=== PATIENT | male | born 1985 | race Hispanic/Latino ===

== ENCOUNTER 2020-10-12 15:33 | Inpatient (IN) | payer SELFPAY ==
[2020-10-12] MEDS ORDERED: NA CHLORIDE 0.9% 50 ML ONE (17:13)
[2020-10-12] MEDS ORDERED: CLINDAMYCIN IV 150 MG/ML (4 mL) VIAL ONE (17:13)
[2020-10-12 17:39] LABS: BUN Blood Urea Nitrogen 7 mg/dL (7-18); Bicarbonate 31 mmol/L (21-32); Glucose Level 104 mg/dL (74-106); Potassium 3.5 mmol/L (3.5-5.1); Sodium Level 140 mmol/L (136-145)
[2020-10-12 17:44] LABS: Basophils % 0.2 % (0-1.3); Hematocrit 40.6 % (39.6-49.0); Lymphocytes % 6.6 % (15.3-44.8); MPV 9.4 fL (7.6-11.3); RBC Red Blood Cell Count 4.41 M/uL (4.33-5.43)
--- NOTE | 2020-10-12 17:48 | EDPHYS ---
Physician Documentation [facility] Name: Daija Holder Age: 35 yrs Sex: Male : 1985 Arrival Date: 10/12/2020 Time: 15:35 Bed 23 Private MD: ED Physician Thee Barrett HPI: 10/12 17:42 This 35 yrs old Male presents to ER via Ambulatory with complaints of Abscess, kb Facial Swelling. 17:47 The patient presents with an abscess of the upper lip, The patient presents with kb cellulitis of the upper lip and left cheek. Description: draining, erythematous, fluctuant, hot, streaking, swollen, tense. Onset: The symptoms/episode began/occurred 3 day(s) ago. Possible cause(s): unknown. Associated signs and symptoms: Pertinent positives: drainage, erythema, swelling, Pertinent negatives: foreign body sensation, fever, headache, nausea, shortness of breath, vomiting. Modifying factors: the symptoms are alleviated by nothing, the symptoms are aggravated by pressure, squeezing the lesion and expressing the contents, touching. Severity of symptoms: At their worst the symptoms were moderate, in the emergency department the symptoms are unchanged. The patient has not experienced similar symptoms in the past. The patient has not recently seen a physician. 17:48 Pt states he had a pimple on left side of upper lip that he was squeezing to get stuff kb out of. Today he woke up with swelling and redness that spread up to the eye. . Historical: - Allergies: 15:48 No Known Allergies; hb - Home Meds: 15:48 None [Active]; hb - PMHx: 15:48 None; hb - PSHx: 15:48 None; hb - Immunization history:: Adult Immunizations up to date. - Social history:: Smoking status: Patient denies any tobacco usage or history of. ROS: 17:38 Constitutional: Negative for fever, chills, and weight loss, Cardiovascular: Negative kb for chest pain, palpitations, and edema, Respiratory: Negative for shortness of breath, cough, wheezing, and pleuritic chest pain, Abdomen/GI: Negative for abdominal pain, nausea, vomiting, diarrhea, and constipation, Back: Negative for injury and pain, MS/Extremity: Negative for injury and deformity, Neuro: Negative for headache, weakness, numbness, tingling, and seizure. 17:38 Skin: Positive for abscess, of the left cheek and upper lip. Exam: 17:38 Constitutional: This is a well developed, well nourished patient who is awake, alert, kb and in no acute distress. Head/Face: Normocephalic, atraumatic. Chest/axilla: Normal chest wall appearance and motion. Nontender with no deformity. No lesions are appreciated. Cardiovascular: Regular rate and rhythm with a normal S1 and S2. No gallops, murmurs, or rubs. Normal PMI, no JVD. No pulse deficits. Respiratory: Lungs have equal breath sounds bilaterally, clear to auscultation and percussion. No rales, rhonchi or wheezes noted. No increased work of breathing, no retractions or nasal flaring. Abdomen/GI: Soft, non-tender, with normal bowel sounds. No distension or tympany. No guarding or rebound. No evidence of tenderness throughout. MS/ Extremity: Pulses equal, no cyanosis. Neurovascular intact. Full, normal range of motion. Neuro: Awake and alert, GCS 15, oriented to person, place, time, and situation. Cranial nerves II-XII grossly intact. Motor strength 5/5 in all extremities. Sensory grossly intact. Cerebellar exam normal. Normal gait. 17:38 Skin: abscess, that is moderate sized, of the upper lip and left cheek, with drainage, with fluctuance, with induration. Vital Signs: 15:47 BP 125 / 74; Pulse 98; Resp 16; Temp 98.7; Pulse Ox 100% on R/A; Pain 3/10; hb 16:41 BP 124 / 72; Pulse 91; Resp 18; Temp 99.6(O); Pulse Ox 99% on R/A; Weight 77.11 kg; zb Height 5 ft. 5 in. (165.10 cm); 17:54 BP 122 / 90; Pulse 91; Resp 18; Pulse Ox 99% on R/A; ph 19:24 BP 139 / 88; Pulse 98; Resp 16; Pulse Ox 100% on R/A; jb4 22:54 BP 100 / 60; Pulse 98; Resp 18; Pulse Ox 98% on R/A; wh 16:41 Body Mass Index 28.29 (77.11 kg, 165.10 cm) zb MDM: 16:27 Patient medically screened. 17:00 Data reviewed: vital signs, nurses notes. Data interpreted: Pulse oximetry: on room air kb is 99 %. Interpretation: normal. Counseling: I had a detailed discussion with the patient and/or guardian regarding: the historical points, exam findings, and any diagnostic results supporting the discharge/admit diagnosis, lab results, the need for further work-up and treatment in the hospital. 17:30 Physician consultation: Physician consultation: Ramiro Perera MD was contacted at 17:30, regarding consult, patient's condition, does not do head and neck abscesses, recommended ENT consult. 17:37 Physician consultation: Marquez Ocasio MD was contacted at 17:37, regarding consult, patient's condition, and will see patient in inpatient room, Orders NPO after midnight, will do I\T\D tomorrow. 17:46 Physician consultation: Jose Manuel Rodríguez DO was contacted at 17:47, regarding admission, kb to the medical/surgical unit. patient's condition. 10/12 16:42 Order name: CBC with Diff; Complete Time: 17:49 kb 10/12 16:42 Order name: Basic Metabolic Panel; Complete Time: 17:49 kb 10/12 16:42 Order name: Wound Culture 10/12 20:35 Order name: COVID-19 bb 10/12 22:32 Order name: [facility] 10/12 23:48 Order name: SARS-COV-2 RT PCR [facility] 10/12 16:42 Order name: IV Start; Complete Time: 17:53 kb 10/13 05:16 Order name: CBC with Automated Diff [facility] 10/13 05:43 Order name: Basic Metabolic Panel [facility] 10/13 07:57 Order name: Hemoglobin A1c [facility] Administered Medications: 16:59 Drug: Clindamycin 300 mg Route: IVPB; Infused Over: 30 mins; Site: right antecubital; ph 17:53 Follow up: Response: No adverse reaction; IV Status: Completed infusion; IV Intake: 50mlph 17:46 Drug: Zofran (Ondansetron) 4 mg Route: IVP; Site: right antecubital; ph 17:53 Follow up: Response: No adverse reaction ph 17:47 Drug: morphine 2 mg Route: IVP; Site: right antecubital; ph 18:00 Follow up: Response: No adverse reaction; Pain is decreased zb 20:13 Drug: morphine 2 mg Route: IVP; Site: right antecubital; jb4 22:54 Follow up: Response: No adverse reaction; Pain is decreased; RASS: Alert and Calm (0) Disposition: 10/12/20 17:47 Hospitalization ordered by Jose Manuel Rodríguez for Observation. Preliminary diagnosis is Cutaneous abscess of face. - Bed requested for [facility] ER HOLD. - Status is Observation. eb - Condition is Stable. - Problem is new. - Symptoms are unchanged. Addendum: 10/14/2020 08:23 Co-signature as Attending Physician, Thee Barrett MD I agree with the assessment and k dr plan of care. Signatures: Dispatcher [employer] EDMS Nancy Gomez, GEOLOGY SCIENTIST-C GEOLOGY SCIENTIST-Ckb Thee Barrett MD MD [facility] Sari Parkinson RN RN Emmy Ruiz RN RN Norah Gallegos RN RN Riccardo Wharton RN RN jbTricia Haddad Winsy July Brizuela RN zb Corrections: (The following items were deleted from the chart) 10/12 17:37 17:33 Physician consultation: goldy 22:13 17:47 Hospitalization Ordered by Jose Manuel Rodríguez DO for Observation. Preliminary cg diagnosis is Cutaneous abscess of face. Bed requested for Telemetry/MedSurg (observation). Status is Observation. Condition is Stable. Problem is new. Symptoms are unchanged. 10/13 08:06 10/12 22:13 10/12/2020 17:47 Hospitalization Ordered by Jose Manuel Rodríguez DO for eb Observation. Preliminary diagnosis is Cutaneous abscess of face. Bed requested for [facility] ER HOLD. Status is Observation. Condition is Stable. Problem is new. Symptoms are unchanged. cg
--- NOTE | 2020-10-12 17:48 | ER ---
Nurse's Notes [facility] Name: Daija Holder Age: 35 yrs Sex: Male : 1985 Arrival Date: 10/12/2020 Time: 15:35 Bed 23 Private MD: Diagnosis: Cutaneous abscess of face Presentation: 10/12 15:47 Chief complaint: Abscess on upper lip and left sided facial swelling x 3 days. hb Coronavirus screen: At this time, the client does not indicate any symptoms associated with coronavirus-19. Ebola Screen: No symptoms or risks identified at this time. Onset of symptoms was October 09, 2020. 15:47 Method Of Arrival: Ambulatory hb 15:47 Acuity: NIRMAL 3 hb 16:40 Initial Sepsis Screen: Does the patient meet any 2 criteria? No. Patient's initial zb sepsis screen is negative. Does the patient have a suspected source of infection? No. Patient's initial sepsis screen is negative. Risk Assessment: Do you want to hurt yourself or someone else? Patient reports no desire to harm self or others. Triage Assessment: 17:52 General: See initial assessment . ph Historical: - Allergies: 15:48 No Known Allergies; hb - Home Meds: 15:48 None [Active]; hb - PMHx: 15:48 None; hb - PSHx: 15:48 None; hb - Immunization history:: Adult Immunizations up to date. - Social history:: Smoking status: Patient denies any tobacco usage or history of. Screenin:40 Abuse screen: Denies threats or abuse. Denies injuries from another. Nutritional zb screening: No deficits noted. Tuberculosis screening: No symptoms or risk factors identified. Fall Risk None identified. Assessment: 16:37 General: Appears in no apparent distress. comfortable, Behavior is calm, cooperative, zb appropriate for age. Pain: Complains of pain in left cheek, mouth and nose Is continuous, Aggravated by pressure. Neuro: Level of Consciousness is awake, alert, obeys commands, Oriented to person, place, time, situation. Cardiovascular: Capillary refill < 3 seconds in bilateral fingers. Respiratory: Airway is patent Respiratory effort is even, unlabored. GI: No signs and/or symptoms were reported involving the gastrointestinal system. : No signs and/or symptoms were reported regarding the genitourinary system. EENT: No signs and/or symptoms were reported regarding the EENT system. Derm: Abscess located on mouth. Musculoskeletal: Circulation, motion, and sensation intact. 19:10 Reassessment: Patient appears in no apparent distress at this time. Patient and/or jb4 family updated on plan of care and expected duration. Pain level reassessed. Patient is alert, oriented x 3, equal unlabored respirations, skin warm/dry/pink. Vital Signs: 15:47 BP 125 / 74; Pulse 98; Resp 16; Temp 98.7; Pulse Ox 100% on R/A; Pain 3/10; hb 16:41 BP 124 / 72; Pulse 91; Resp 18; Temp 99.6(O); Pulse Ox 99% on R/A; Weight 77.11 kg; zb Height 5 ft. 5 in. (165.10 cm); 17:54 BP 122 / 90; Pulse 91; Resp 18; Pulse Ox 99% on R/A; ph 19:24 BP 139 / 88; Pulse 98; Resp 16; Pulse Ox 100% on R/A; jb4 22:54 BP 100 / 60; Pulse 98; Resp 18; Pulse Ox 98% on R/A; wh 16:41 Body Mass Index 28.29 (77.11 kg, 165.10 cm) zb ED Course: 15:35 Patient arrived in ED. ds1 15:48 Triage completed. hb 15:49 Arm band placed on. hb 16:27 Nancy Gomez FNP-C [facility]. kb 16:27 Thee Barrett MD is Attending Physician. kb 16:30 July Brizuela RN is Primary Nurse. zb 16:41 Patient has correct armband on for positive identification. Bed in low position. Call zb light in reach. Side rails up X 1. Pulse ox on. NIBP on. Door closed. Noise minimized. 17:00 Inserted saline lock: 22 gauge in right antecubital area, using aseptic technique. zb 17:47 Jose Manuel Rodríguez DO is Hospitalizing Provider. kb 18:12 No provider procedures requiring assistance completed. zb 22:54 Patient admitted, IV remains in place. wh Administered Medications: 16:59 Drug: Clindamycin 300 mg Route: IVPB; Infused Over: 30 mins; Site: right antecubital; ph 17:53 Follow up: Response: No adverse reaction; IV Status: Completed infusion; IV Intake: 50mlph 17:46 Drug: Zofran (Ondansetron) 4 mg Route: IVP; Site: right antecubital; ph 17:53 Follow up: Response: No adverse reaction ph 17:47 Drug: morphine 2 mg Route: IVP; Site: right antecubital; ph 18:00 Follow up: Response: No adverse reaction; Pain is decreased zb 20:13 Drug: morphine 2 mg Route: IVP; Site: right antecubital; jb4 22:54 Follow up: Response: No adverse reaction; Pain is decreased; RASS: Alert and Calm (0) wh Intake: 17:53 IV: 50ml; Total: 50ml. ph Outcome: 17:47 Decision to Hospitalize by Provider. kb 22:53 Admitted to ER Hold. Please see [facility] for further documentation. 22:53 Condition: stable 22:53 Instructed on the need for admit. 10/13 08:06 Patient left the ED. eb Signatures: Nancy Gomez, STRATEGY EXECUTION CONSULTANT-C STRATEGY EXECUTION CONSULTANT-Stephanie Tarango ds1 Sari Parkinson RN RN Norah Gallegos RN RN hb Bryson, James, RN RN jb4 Habalo, Winsy Tricia Curtis [place], RN RN zb
[2020-10-12] MEDS ORDERED: MORPHINE 2 MG/ML SYR ONE ×2 (17:49→20:22)
[2020-10-12] MEDS ORDERED: ONDANSETRON 4 MG/2 ML VIAL ONE (17:50)
--- NOTE | 2020-10-12 19:04 | P.HP ---
Certification for Inpatient Patient admitted to: Inpatient With expected LOS: >2 Midnights Patient will require the following post-hospital care: None Practitioner: I am a practitioner with admitting privileges, knowledge of patient current condition, hospital course, and medical plan of care. Services: Services provided to patient in accordance with Admission requirements found in Title 42 Section 412.3 of the Code of Federal Regulations <LoraAkbar Last Filed: 10/12/20 18:58> Patient admitted to: Inpatient With expected LOS: >2 Midnights <Jose Manuel Rodríguez - Last Filed: 10/13/20 15:15> Patient History Date of Service: 10/12/20 Primary Care Provider: None Reason for admission: Facial abscess History of Present Illness: 35 year old male with no significant past medical history presents emergency department for left-sided facial redness and swelling. Patient reports that approximately 3 days ago he nicked himself while shaving and has noticed an area above his lip that has began swelling. Swelling has increased, left-side with very swollen with redness extending to just below the left eye. No redness or pain involving the eye or periorbital areas. Patient noted to 15 white blood cell count. ED provider spoke with plastic surgery who will take patient to operating room tomorrow. Patient does not appear septic at this time. - Past Medical/Surgical History -: None -: None Psychosocial/ Personal History: Lives with family - Family History Family History: Reviewed- Non-Contributory - Social History Smoking Status: Never smoker Alcohol use: Yes CD- Drugs: No Caffeine use: No Place of Residence: Home <Akbar Paulino - Last Filed: 10/12/20 18:58> Date of Service: 10/13/20 Home medications list reviewed: Yes - Past Medical/Surgical History Diabetic: No <Jose Manuel Rodríguez - Last Filed: 10/13/20 15:15> Review of Systems 10-point ROS is otherwise unremarkable Musculoskeletal: As per HPI Integumentary: As per HPI <Akbar Paulino Last Filed: 10/12/20 18:58> Physical Examination - Physical Exam General: Alert, In no apparent distress HEENT: Atraumatic, PERRLA, Mucous membr. moist/pink, Other (Redness swelling to left facial area including with with redness extending to just below the left eye.) Neck: Supple, 2+ carotid pulse no bruit, No LAD, Without JVD or thyroid abnormality Respiratory: Clear to auscultation bilaterally, Normal air movement Cardiovascular: Regular rate/rhythm, Normal S1 S2 Gastrointestinal: Normal bowel sounds, No tenderness Musculoskeletal: No tenderness Integumentary: No rashes Neurological: Normal gait, Normal speech, Normal strength at 5/5 x4 extr, Normal tone, Normal affect - Studies Laboratory Data (last 24 hrs) 10/12/20 17:10: Sodium 140, Potassium 3.5, BUN 7, Creatinine 0.93, Glucose 104 10/12/20 17:10: WBC 15.6 H, Hgb 13.8, Hct 40.6, Plt Count 218 <Akbar Paulino - Last Filed: 10/12/20 18:58> - Studies Laboratory Data (last 24 hrs) 10/12/20 17:10: Sodium 140, Potassium 3.5, BUN 7, Creatinine 0.93, Glucose 104 10/12/20 17:10: WBC 15.6 H, Hgb 13.8, Hct 40.6, Plt Count 218 Microbiology Data (last 24 hrs): 10/12/20 17:14 Wound - Abscess Gram Stain - Final <Jose Manuel Rodríguez - Last Filed: 10/13/20 15:15> Assessment and Plan - Plan Assessment Left-sided facial abscess Plan Left-sided facial abscess-continue with IV antibiotics, NPO after midnight. Plan for surgical intervention tomorrow plastic surgery. DVT prophylaxis with SCDs. P.r.n. pain medications. Discharge Plan: Home Plan to discharge in: 48 Hours - Advance Directives Does patient have a Living Will: No Does patient have a Durable POA for Healthcare: No - Code Status/Comfort Care Code Status Assessed: Yes (Full code) Critical Care: No Time Spent Managing Pts Care (In Minutes): 55 <Akbar Paulino - Last Filed: 10/12/20 18:58> - Plan Case discussed in detail with nurse practitioner. Agree with evaluation, assessment and plan of care. Continue IV antibiotic therapy. Patient NPO for intervention by plastic surgery. Await recommendation. Will consult infectious disease for further recommendation on antibiotic choice. Please see progress note for details. <Jose Manuel Rodríguez - Last Filed: 10/13/20 15:15>
[2020-10-12] MEDS ORDERED: MORPHINE 2 MG/ML SYR IV PRN (19:28)
[2020-10-12] MEDS ORDERED: ACETAMINOPHEN 500 MG TAB PO PRN (19:28)
[2020-10-12] MEDS: NA CHLORIDE 0.9% 1,000 ML IV SCH (19:28)
[2020-10-12] MEDS ORDERED: ONDANSETRON 4 MG/2 ML VIAL IV PRN (19:28)
[2020-10-12] MEDS ORDERED: NA CHLORIDE 0.9% 1,000 ML ONE (20:12)
[2020-10-12 21:18] VITALS: BMI 28.3
[2020-10-13] MEDS: CLINDAMYCIN INJ 600 MG in NA CHLORIDE 0.9% 50 ML IV SCH ×3 (01:00→16:48)
[2020-10-13] MEDS ORDERED: CLINDAMYCIN 600MG/D5W 600 MG/50 ML BAG IV ONE (02:21)
[2020-10-13] MEDS ORDERED: MORPHINE 2 MG/ML SYR ONE ×2 (02:21→07:37)
[2020-10-13] MEDS ORDERED: NA CHLORIDE 0.9% 1,000 ML ONE (04:53)
[2020-10-13] MEDS: NA CHLORIDE 0.9% 1,000 ML IV SCH ×5 (04:58→16:23)
[2020-10-13 05:09] LABS: Absolute Lymphocytes (CBC) 1.2 K/uL (0.7-4.9); Basophils % 0.2 % (0-1.3); Hematocrit 37.6 % (39.6-49.0); Lymphocytes % 7.5 % (15.3-44.8); MPV 9.3 fL (7.6-11.3); RBC Red Blood Cell Count 4.05 M/uL (4.33-5.43)
[2020-10-13 05:42] LABS: BUN Blood Urea Nitrogen 7 mg/dL (7-18); Bicarbonate 29 mmol/L (21-32); Glucose Level 126 mg/dL (74-106); Potassium 3.6 mmol/L (3.5-5.1); Sodium Level 141 mmol/L (136-145)
[2020-10-13] MEDS ORDERED: KCL 20 MEQ/100 mL IVPB 20 MEQ/100 ML BAG IV ONE (07:38)
[2020-10-13] MEDS ORDERED: KCL 20 MEQ/100 mL IVPB 20 MEQ/100 ML BAG IV SCH (08:00)
[2020-10-13] MEDS ORDERED: LIDOCAINE 1% MPF 5 ML VIAL ONE (08:24)
[2020-10-13] MEDS ORDERED: propofoL 200 MG/20 ML VIAL IV ONE (08:24)
[2020-10-13] MEDS ORDERED: MIDAZOLAM HCL 2 MG/2 ML INJ ONE (08:24)
[2020-10-13] MEDS ORDERED: FENTANYL CITR 100 MCG/2 ML ONE (08:24)
--- NOTE | 2020-10-13 08:29 | P.PN ---
Subjective Date of Service: 10/13/20 Primary Care Provider: None Chief Complaint: Facial abscess Subjective: Other (Swelling to the left upper lip area and facial area slightly improved. Pain better controlled) Physical Examination - Vital Signs Temperature: 98.9 F Blood Pressure: 126/81 Pulse: 116 Respirations: 20 Pulse Ox (%): 95 - Physical Exam General: Alert, In no apparent distress HEENT: Other (Patient has significant erythema, swelling to the upper lip left greater than right. Patient also has erythema and swelling radiating to the left maxilla orbital area.) Neck: Supple Respiratory: Clear to auscultation bilaterally, Normal air movement Cardiovascular: Normal pulses, Regular rate/rhythm Gastrointestinal: Normal bowel sounds, Soft and benign, Non-distended, No tenderness, No masses, No rebound, No guarding Neurological: Normal speech, Normal strength at 5/5 x4 extr, Normal tone, Normal affect - Studies Laboratory Data (last 24 hrs) 10/12/20 17:10: Sodium 140, Potassium 3.5, BUN 7, Creatinine 0.93, Glucose 104 10/12/20 17:10: WBC 15.6 H, Hgb 13.8, Hct 40.6, Plt Count 218 Medications List Reviewed: Yes Assessment & Plan Discharge Plan: Home Plan to discharge in: 48 Hours Physician Review Additional Text: Assessment Left-sided upper lip/maxillofacial cellulitis with possible abscess likely related to ingrown hair Plan Left-sided upper lip/maxillofacial cellulitis with possible abscess likely related to ingrown hair: Patient currently NPO at this time. Plastic surgery was consulted yesterday. Surgical intervention planned for today. Anticipate irrigation and debridement of abscess. Continue with IV antibiotic therapy. Increase IV fluids. Will provide medication for pain. Will also consult infectious disease for further antibiotic recommendation. Blood sugar slightly elevated but A1c at 5.3. No evidence of pre diabetes or diabetes. Anticipate improvement over the next 48 hr. Time Spent Managing Pts Care (In Minutes): 55
[2020-10-13] MEDS ORDERED: SUCCINYLCHOLINE 20 MG/ML (10 ML) IV ONE (08:46)
[2020-10-13] MEDS ORDERED: ROCURONIUM 50 MG/5 ML VIAL IV ONE (08:56)
[2020-10-13] MEDS ORDERED: KETOROLAC 30 MG/ML INJ ONE (09:14)
[2020-10-13] MEDS ORDERED: MORPHINE 10 MG/ML VIAL ONE (09:17)
[2020-10-13] MEDS ORDERED: ONDANSETRON 4 MG/2 ML VIAL ONE (09:17)
[2020-10-13] MEDS ORDERED: INFLUENZA VACCINE (for 3y+) 0.5 ML DOSE IMVAC ONE (10:00)
--- NOTE | 2020-10-13 10:05 | OP ---
Surgeon: Marquez Ocasio MD Preoperative Diagnosis: Abscess of left face. Preoperative Diagnosis: Abscess of left face. Procedure Performed: Debridement of skin and subcutaneous tissue and abscess. Anesthesia: General. Procedure In Detail: After satisfactory induction of general anesthesia, the face was prepped with Betadine scrub, Betadine paint, dry sterile drapes were applied in usual manner. Elliptical incision was made over the open wound on the left upper lip area. Cultures had been taken prior to preping. the abscess was observed extending toward the eye. Elliptical incision was made over the lip was tracked with a hemostat. A [place] drain was placed and wound was jet lavaged, irrigated with 3 L of dilute Betadine solution. Electrocautery was used for hemostasis. Wound was covered with 4 x 4 tape. The patient tolerated procedure well, returned to Recovery. VISHNU Voice ID: [id number] Report ID: [id number] EDSON
[2020-10-13] MEDS ORDERED: MEPERIDINE HCL 50 MG/ML IM PRN (10:10)
[2020-10-13] MEDS ORDERED: CODEINE 30MG/APAP 300MG TAB PO PRN (10:11)
[2020-10-13] MEDS: HYDROCODONE/APAP 7.5/325 MG TAB PO PRN ×2 (10:35→16:53)
[2020-10-13] MEDS: DIPHENHYDRAMINE 50 MG/ML VIAL IV PRN (20:48)
[2020-10-14] MEDS: CLINDAMYCIN INJ 600 MG in NA CHLORIDE 0.9% 50 ML IV SCH ×2 (01:11→08:37)
[2020-10-14] MEDS: NA CHLORIDE 0.9% 1,000 ML IV SCH ×3 (01:12→16:23)
[2020-10-14 05:52] LABS: Absolute Lymphocytes (CBC) 1.4 K/uL (0.7-4.9); Basophils % 0.4 % (0-1.3); Hematocrit 35.1 % (39.6-49.0); Lymphocytes % 16.7 % (15.3-44.8); MPV 9.1 fL (7.6-11.3); RBC Red Blood Cell Count 3.81 M/uL (4.33-5.43)
[2020-10-14 06:02] LABS: BUN Blood Urea Nitrogen 10 mg/dL (7-18); Bicarbonate 30 mmol/L (21-32); Glucose Level 100 mg/dL (74-106); Sodium Level 140 mmol/L (136-145)
--- NOTE | 2020-10-14 09:53 | P.PN ---
Subjective Date of Service: 10/14/20 Primary Care Provider: None Chief Complaint: Facial abscess Subjective: Improving, Other (Patient had surgery yesterday. No significant pain noted. Patient feels better..) Physical Examination - Vital Signs Temperature: 97.5 F Blood Pressure: 110/74 Pulse: 85 Respirations: 20 Pulse Ox (%): 96 - Physical Exam General: Alert, Cooperative HEENT: Other (Erythema to the left facial area and lip improved. Drain in place. Erythema also improved) Neck: Supple Respiratory: Clear to auscultation bilaterally, Normal air movement Cardiovascular: Normal pulses, Regular rate/rhythm Gastrointestinal: Normal bowel sounds, Soft and benign, Non-distended Integumentary: Other (As above) Neurological: Normal speech, Normal strength at 5/5 x4 extr, Normal tone, Normal affect - Studies Microbiology Data (last 24 hrs): 10/12/20 17:14 Wound - Abscess Gram Stain - Final 10/12/20 17:14 Wound - Abscess Culture & Sensitivity - Final Meth Resistant Staph Aureus Staph Aureus Medications List Reviewed: Yes Assessment & Plan Discharge Plan: Home Plan to discharge in: 24 Hours Physician Review Additional Text: Assessment Left-sided upper lip/maxillofacial cellulitis with abscess likely related to ingrown hair status post debridement by plastic surgery, wound culture positive for Staph aureus and MRSA Plan Left-sided upper lip/maxillofacial cellulitis with abscess likely related to ingrown hair status post debridement by plastic surgery, wound culture positive for Staph aureus and MRSA: Patient overall improved. Swelling, erythema improved. White count also improved. Wound culture reviewed. Discontinue clindamycin. Start vancomycin. Will discuss case with Infectious Disease and Plastic surgery. Possible discharge in the next 24 hr with improvement. Possible discharge with Bactrim and doxycycline at discharge. Will continue to monitor closely. Time Spent Managing Pts Care (In Minutes): 55
[2020-10-14 10:23] VITALS: O2SAT 96
[2020-10-14] MEDS: VANCOMYCIN 1.5 GM in NA CHLORIDE 0.9% 500 ML IVPB SCH ×2 (12:03→20:55)
[2020-10-14] MEDS: HYDROCODONE/APAP 7.5/325 MG TAB PO PRN ×2 (12:10→20:57)
[2020-10-14] MEDS: TRAMADOL HCL 50 MG TAB PO PRN (15:35)
[2020-10-15] MEDS: NA CHLORIDE 0.9% 1,000 ML IV SCH ×2 (00:23→03:48)
[2020-10-15] MEDS: TRAMADOL HCL 50 MG TAB PO PRN (04:34)
[2020-10-15] MEDS: DIPHENHYDRAMINE 50 MG/ML VIAL IV PRN (04:37)
[2020-10-15 05:17] LABS: Absolute Lymphocytes (CBC) 1.3 K/uL (0.7-4.9); Basophils % 0.4 % (0-1.3); Hematocrit 34.8 % (39.6-49.0); Lymphocytes % 20.3 % (15.3-44.8); MPV 8.8 fL (7.6-11.3); RBC Red Blood Cell Count 3.81 M/uL (4.33-5.43)
[2020-10-15] MEDS ORDERED: IBUPROFEN 400 MG TAB PO PRN (07:19)
[2020-10-15] MEDS ORDERED: LACTOBACILLUS/ACIDOPHILUS TAB PO SCH (09:00)
[2020-10-15] MEDS: VANCOMYCIN 1.5 GM in NA CHLORIDE 0.9% 500 ML IVPB SCH (09:15)
--- NOTE | 2020-10-15 09:33 | P.DS ---
Admission Date: 10/12/20 Discharge Date: 10/15/20 Primary Care Provider: None Disposition: ROUTINE DISCHARGE Discharge Condition: GOOD Reason for Admission: Facial abscess Consultations: Infectious disease-Dr. Peters Plastic Surgery-Dr. Ocasio Procedures: Surgery: Surgeon: Marquez Ocasio MD Preoperative Diagnosis: Abscess of left face. Preoperative Diagnosis: Abscess of left face. Procedure Performed: Debridement of skin and subcutaneous tissue and abscess. Anesthesia: General. Medical problem list: Left-sided upper lip/maxillofacial cellulitis with abscess likely related to ingrown hair status post debridement by plastic surgery, wound culture positive for Staph aureus and MRSA Brief History of Present Illness: 35-year-old male presented to the emergency room with increased swelling to the left facial area including the lid. He apparently had a small cut from shaving. Since that time increased pain, swelling and erythema noted. Patient was evaluated emergency room. Patient found to have left facial cellulitis with abscess. Patient admitted for treatment. Hospital Course: Patient presented with left-sided upper lip/maxillofacial cellulitis with abscess. Patient was seen and evaluated by plastic surgery. Surgical intervention was required. Patient had debridement with drain placed by plastic surgery. Wound culture positive for Staph aureus and MRSA. The patient received IV antibiotic therapy. Patient has done well. Patient also seen by infectious disease. At discharge he is without significant pain. Swelling has significantly improved. Case discussed in detail with plastic surgery and infectious disease. At discharge patient will continue with current wound care. Instructions will be provided to teach . At discharge patient will continue with Bactrim DS 1 pill twice daily for 10 days. Patient may use ibuprofen 600 mg 3 times a day as needed for pain along with Tylenol 500 mg 3 times a day as needed for pain. Patient will follow up with plastic surgery tomorrow at 9:00 a.m. to follow up this hospitalization and continue his care. Recommend to establish care with a local physician to continue his care as well. Education on MRSA provided. Vital Signs/Physical Exam: Temp Pulse Resp BP Pulse Ox 97.3 F 69 20 109/58 L 94 10/15/20 08:00 10/15/20 08:00 10/15/20 08:00 10/15/20 08:00 10/15/20 08:00 General: Alert, In no apparent distress, Oriented x3, Cooperative HEENT: Other (Left facial swelling significantly improved. Mild swelling noted to the lip region on the left side. No significant erythema noted. Drain in place. Postsurgical changes noted.) Neck: Supple Respiratory: Clear to auscultation bilaterally, Normal air movement Cardiovascular: Normal pulses, Regular rate/rhythm Gastrointestinal: Normal bowel sounds, Soft and benign, Non-distended, No tenderness, No masses, No rebound, No guarding Musculoskeletal: No erythema, No tenderness, No warmth Integumentary: No tenderness/swelling, No erythema, No warmth, No cyanosis Neurological: Normal speech, Normal strength at 5/5 x4 extr, Normal tone, Normal affect Laboratory Data at Discharge: WBC 6.5 K/uL (4.3-10.9) D 10/15/20 04:44 Hgb 12.2 g/dL (13.6-17.9) L 10/15/20 04:44 Hct 34.8 % (39.6-49.0) L 10/15/20 04:44 Plt Count 236 K/uL (152-406) 10/15/20 04:44 Sodium 140 mmol/L (136-145) 10/14/20 05:13 Potassium 4.0 mmol/L (3.5-5.1) 10/14/20 05:13 BUN 10 mg/dL (7-18) 10/14/20 05:13 Creatinine 0.79 mg/dL (0.55-1.3) 10/14/20 05:13 Glucose 100 mg/dL (74-106) 10/14/20 05:13 Home Medications: Lactobacillus Acidophilus [Acidophilus Lactobacilli] 1 each PO TID #30 capsule 10/15/20 Sulfamethoxazole/Trimethoprim [Bactrim Ds Tablet] 1 each PO BID #20 tablet 10/15/20 New Medications: Lactobacillus Acidophilus [Acidophilus Lactobacilli] 1 each PO TID #30 capsule Sulfamethoxazole/Trimethoprim [Bactrim Ds Tablet] 1 each PO BID #20 tablet Patient Discharge Instructions: 1. Follow up with PCP to establish care. 2. Patient presented with left-sided upper lip/maxillofacial cellulitis with abscess. Patient was seen and evaluated by plastic surgery. Surgical intervention was required. Patient had debridement with drain placed by plastic surgery. Wound culture positive for Staph aureus and MRSA. The patient received IV antibiotic therapy. Patient has done well. Patient also seen by infectious disease. At discharge he is without significant pain. Swelling has significantly improved. Case discussed in detail with plastic surgery and infectious disease. At discharge patient will continue with current wound care. Instructions will be provided to teach . At discharge patient will continue with Bactrim DS 1 pill twice daily for 10 days. Patient may use ibuprofen 600 mg 3 times a day as needed for pain along with Tylenol 500 mg 3 times a day as needed for pain. Patient will follow up with plastic surgery tomorrow at 9:00 a.m. to follow up this hospitalization and continue his care. Recommend to establish care with a local physician to continue his care as well. Education on MRSA provided. Diet: Regular Activity: Ad yolanda Followup: Kulwant BRITOOT [Primary Care Provider] - Time spent managing pt's care (in minutes): 55
[2020-10-15] MEDS ORDERED: VANCOMYCIN 1 GM in NA CHLORIDE 0.9% 500 ML IVPB SCH (09:50)
[2020-10-15 13:39] VITALS: BP 118/71; TEMP 97.8
== END 2020-10-15 13:09 | disposition home or self-care (01) | DRG 580 ==
LOC: ER 15:33 → ERHOLD 18:53 → 2ND 10-13 08:30
PROVIDERS: ADMIT Family Medicine; ATTEND Family Medicine
PROC: 0JD10ZZ Extraction of Face Subcutaneous Tissue and Fascia, Open Approach (ICD-10-PCS; principal; 2020-10-13 08:00)
DX: L03.211 Cellulitis of face (principal); L02.01 Cutaneous abscess of face; L73.1 Pseudofolliculitis barbae; K13.0 Diseases of lips; B95.62 Methicillin resistant Staphylococcus aureus infection as the cause of diseases classified elsewhere; Z20.828 Contact with and (suspected) exposure to other viral communicable diseases
CPT/HCPCS: 36415; 80048; 83036; 85025; 87070; 87075; 87077; 87186; 87205; 88304; 96365; 96375; 99285; J0330; J1200; J2250; J2270; J2405; J2704; J3010; J3370; J3480; J7030; J7040; S0077; U0003

== ENCOUNTER 2020-10-18 10:55 | Day surgery (SDC) | payer SELFPAY ==
[2020-10-18] MEDS ORDERED: Ringers Lactate 1,000 ML IV ONE (12:43)
[2020-10-18] MEDS: CEFAZOLIN/SWI 1gm 1 GM/10 ML SYR ONE ×2 (13:22→14:45)
[2020-10-18] MEDS ORDERED: LIDOCAINE 1% W/EPI 1:100,000 MDV 20 ML VIAL ONE (14:03)
[2020-10-18] MEDS ORDERED: LIDOCAINE 1% MPF 30 ML VIAL ONE (14:03)
[2020-10-18] MEDS ORDERED: FENTANYL CITR 100 MCG/2 ML ONE (14:43)
[2020-10-18] MEDS ORDERED: propofoL 200 MG/20 ML VIAL IV ONE (14:51)
[2020-10-18] MEDS ORDERED: LIDOCAINE 1% MPF 5 ML VIAL ONE (14:51)
[2020-10-18] MEDS ORDERED: KETOROLAC 30 MG/ML INJ ONE (14:59)
[2020-10-18] MEDS ORDERED: ONDANSETRON 4 MG/2 ML VIAL ONE (15:12)
[2020-10-18] MEDS ORDERED: CODEINE 30MG/APAP 300MG TAB PO ONE (16:00)
[2020-10-18] MEDS ORDERED: CODEINE 30MG/APAP 300MG TAB ONE (16:07)
--- NOTE | 2020-10-18 16:07 | OP ---
Surgeon: Marquez Ocasio MD Preoperative Diagnosis: Abscess of the face. Postoperative Diagnosis: Abscess of the face. Procedure: Debridement of skin and subcutaneous tissue. Anesthesia: General. Procedure In Detail: After satisfactory induction of general anesthesia, face was prepped with Betad ine scrub and paint, dry sterile drapes were applied. A curette was used debride skin and subcutaneo us tissue as needed forceps and scissors. The wounds then jet lavage irrigated with 3 L of dilute Be tadine solution. Electrocautery was used for hemostasis. Dressed with 4 x 4 tape. The patient tole rated procedure well and returned to Recovery. ARRON/LYLE Voice ID: [id number] Report ID: [id number]
[2020-10-18 16:32] VITALS: BP 131/69; O2SAT 100
[2020-10-18 16:33] VITALS: TEMP 97.7
== END 2020-10-18 16:28 | disposition home health service (06) ==
LOC: OR 10:55
PROVIDERS: ATTEND Specialist
PROC: 0JD13ZZ Extraction of Face Subcutaneous Tissue and Fascia, Percutaneous Approach (ICD-10-PCS; principal; 2020-10-18 12:30)
DX: L02.01 Cutaneous abscess of face (principal)
CPT/HCPCS: J0690; J2405; J2704; J3010; J7120

== ENCOUNTER 2020-10-19 17:36 | Emergency (ER) | payer SELFPAY ==
[2020-10-19] MEDS ORDERED: SILVER NITRATE 1 APPL TOP ONE (18:27)
--- NOTE | 2020-10-19 18:37 | EDPHYS ---
Physician Documentation [facility] Name: Daija Holder Age: 35 yrs Sex: Male : 1985 Arrival Date: 10/19/2020 Time: 17:38 Bed 6 Private MD: ED Physician Saad Scott HPI: 10/19 18:33 This 35 yrs old Male presents to ER via Ambulatory with complaints of Post kb Surgical Bleeding. 18:33 Pt had second I\T\D of facial abscess done by Dr Ocasio yesterday. States he removed kb the gauze to change the dressing as instructed and it started bleeding. States it bleeds every time he removes the gauze. . Onset: The symptoms/episode began/occurred today. Severity of symptoms: At their worst the symptoms were moderate in the emergency department the symptoms are unchanged. The patient has not experienced similar symptoms in the past. The patient has not recently seen a physician. Historical: - Allergies: 17:47 No Known Allergies; jd3 - Home Meds: 17:47 None [Active]; jd3 - PMHx: 17:47 None; jd3 - PSHx: 17:47 None; jd3 - Immunization history:: Adult Immunizations up to date. - Social history:: Smoking status: Patient denies any tobacco usage or history of. ROS: 18:30 Constitutional: Negative for fever, chills, and weight loss, Cardiovascular: Negative kb for chest pain, palpitations, and edema, Respiratory: Negative for shortness of breath, cough, wheezing, and pleuritic chest pain, Abdomen/GI: Negative for abdominal pain, nausea, vomiting, diarrhea, and constipation, Back: Negative for injury and pain, MS/Extremity: Negative for injury and deformity, Neuro: Negative for headache, weakness, numbness, tingling, and seizure. 18:30 Skin: Positive for surgical incision bleeding. Exam: 18:30 Constitutional: This is a well developed, well nourished patient who is awake, alert, kb and in no acute distress. MS/ Extremity: Pulses equal, no cyanosis. Neurovascular intact. Full, normal range of motion. Neuro: Awake and alert, GCS 15, oriented to person, place, time, and situation. Cranial nerves II-XII grossly intact. Motor strength 5/5 in all extremities. Sensory grossly intact. Cerebellar exam normal. Normal gait. 18:30 Head/face: Noted is no obvious of injury or deformity except surgical incision to left cheek with moderate bleeding. 18:30 Respiratory: the patient does not display signs of respiratory distress, Respirations: normal. Vital Signs: 17:46 BP 119 / 74; Pulse 84; Resp 17 S; Temp 98.3(TE); Pulse Ox 99% on R/A; Weight 86.18 kg jd3 (R); Height 5 ft. 6 in. (167.64 cm) (R); Pain 0/10; 17:46 Body Mass Index 30.67 (86.18 kg, 167.64 cm) jd3 MDM: 18:02 Patient medically screened. kb 18:28 Data reviewed: vital signs, nurses notes. Data interpreted: Pulse oximetry: on room air kb is 99 %. Interpretation: normal. Counseling: I had a detailed discussion with the patient and/or guardian regarding: the historical points, exam findings, and any diagnostic results supporting the discharge/admit diagnosis, the need for outpatient follow up, a family practitioner, to return to the emergency department if symptoms worsen or persist or if there are any questions or concerns that arise at home. Physician consultation: Marquez Ocasio MD was contacted at 18:30, regarding consult, patient's condition, and will see patient in office. 18:32 ED course: silver nitrate stick used to cauterize bleeding vessel, surgicel appied, kb then gauze. No bleeding at this time. Administered Medications: 18:30 Drug: Silver Nitrate Applicators 3 application Route: Topical; Site: affected area; [facility] 18:30 Follow up: Response: No adverse reaction jl7 Disposition: 10/20 06:01 Co-signature as Attending Physician, Saad Scott MD I agree with the assessment and yovanny plan of care. Disposition: 10/19/20 18:36 Discharged to Home. Impression: Encounter for change or removal of surgical wound dressing. - Condition is Stable. - Discharge Instructions: How to Change Your Dressing, Nedg-[id number], Incision Care, [id number]-[id number]. - Medication Reconciliation Form, Thank You Letter, Antibiotic Education, Prescription Opioid Use form. - Follow up: Emergency Department; When: As needed; Reason: Worsening of condition. Follow up: Private Physician; When: 2 - 3 days; Reason: Recheck today's complaints, Continuance of care, Re-evaluation by your physician. Signatures: Nancy Gomez, NUISANCE WILDLIFE TRAPPER-C NUISANCE WILDLIFE TRAPPER-Saad Miranda MD MD cha Williams, Irene RN RN iw Peace Samuel RN RN jl7 Boni Su RN RN jd3 Corrections: (The following items were deleted from the chart) 10/19 18:49 18:36 10/19/2020 18:36 Discharged to Home. Impression: Encounter for change or removal iw of surgical wound dressing. Condition is Stable. Forms are Medication Reconciliation Form, Thank You Letter, Antibiotic Education, Prescription Opioid Use. Follow up: Emergency Department; When: As needed; Reason: Worsening of condition. Follow up: Private Physician; When: 2 - 3 days; Reason: Recheck today's complaints, Continuance of care, Re-evaluation by your physician. kb 18:52 18:49 10/19/2020 18:36 Discharged to Home. Impression: Encounter for change or removal jl7 of surgical wound dressing. Condition is Stable. Discharge Instructions: How to Change Your Dressing, Rmvm-ui-Gaxk, Incision Care, [id number]. Forms are Medication Reconciliation Form, Thank You Letter, Antibiotic Education, Prescription Opioid Use. Follow up: Emergency Department; When: As needed; Reason: Worsening of condition. Follow up: Private Physician; When: 2 - 3 days; Reason: Recheck today's complaints, Continuance of care, Re-evaluation by your physician. iw
--- NOTE | 2020-10-19 18:37 | ER ---
Nurse's Notes [facility] Name: Daija Holder Age: 35 yrs Sex: Male : 1985 Arrival Date: 10/19/2020 Time: 17:38 Bed 6 Private MD: Diagnosis: Encounter for change or removal of surgical wound dressing Presentation: 10/19 17:47 Chief complaint: Patient states: "I had lip surgery yesterday, and now when I change jd3 the dressing it will not stop bleeding.". Coronavirus screen: At this time, the client does not indicate any symptoms associated with coronavirus-19. Ebola Screen: Patient negative for fever greater than or equal to 101.5 degrees Fahrenheit, and additional compatible Ebola Virus Disease symptoms. Initial Sepsis Screen: Does the patient meet any 2 criteria? No. Patient's initial sepsis screen is negative. Does the patient have a suspected source of infection? No. Patient's initial sepsis screen is negative. Risk Assessment: Do you want to hurt yourself or someone else? Patient reports no desire to harm self or others. Note no active bleeding noted in triage, dressing noted to surgical site. Onset of symptoms was October 19, 2020. 17:47 Method Of Arrival: Ambulatory jd3 17:47 Acuity: NIRMAL 3 jd3 Historical: - Allergies: 17:47 No Known Allergies; jd3 - Home Meds: 17:47 None [Active]; jd3 - PMHx: 17:47 None; jd3 - PSHx: 17:47 None; jd3 - Immunization history:: Adult Immunizations up to date. - Social history:: Smoking status: Patient denies any tobacco usage or history of. Screenin:20 Abuse screen: Denies threats or abuse. Denies injuries from another. Nutritional jl7 screening: No deficits noted. Tuberculosis screening: No symptoms or risk factors identified. Fall Risk None identified. Assessment: 18:20 General: Appears in no apparent distress. uncomfortable, Behavior is calm, cooperative, jl7 appropriate for age. Pain: Denies pain. Neuro: Level of Consciousness is awake, alert, obeys commands, Oriented to person, place, time, situation. Cardiovascular: Patient's skin is warm and dry. Respiratory: Airway is patent Respiratory effort is even, unlabored, Respiratory pattern is regular, symmetrical. Derm: Skin is pink, warm \\T\\ dry. Vital Signs: 17:46 BP 119 / 74; Pulse 84; Resp 17 S; Temp 98.3(TE); Pulse Ox 99% on R/A; Weight 86.18 kg jd3 (R); Height 5 ft. 6 in. (167.64 cm) (R); Pain 0/10; 17:46 Body Mass Index 30.67 (86.18 kg, 167.64 cm) j ED Course: 17:38 Patient arrived in ED. ag5 17:47 Arm band placed on. jd3 17:48 Triage completed. jd3 18:02 Nancy Gomez FNP-C is [facility]. kb 18:02 Saad Scott MD is Attending Physician. kb 18:20 Patient has correct armband on for positive identification. Call light in reach. Side jl7 rails up X 1. 18:20 No provider procedures requiring assistance completed. Patient did not have IV access jl7 during this emergency room visit. 18:22 Peace Samuel RN is Primary Nurse. jl7 18:51 Primary Nurse role handed off by Peace Samuel RN jl7 18:51 Peace Samuel RN is Primary Nurse. jl7 Administered Medications: 18:30 Drug: Silver Nitrate Applicators 3 application Route: Topical; Site: affected area; jl7 18:30 Follow up: Response: No adverse reaction jl7 Outcome: 18:36 Discharge ordered by MD. kb 18:48 Discharged to home ambulatory. jl7 18:48 Condition: stable 18:48 Discharge instructions given to patient, Instructed on discharge instructions, follow up and referral plans. Demonstrated understanding of instructions, follow-up care. 18:49 Patient left the ED. iw 18:52 Patient left the ED. jl7 Signatures: Nancy Gomez FNP-C FNP-Niru Sol RN RN iw Leal, Jahala, RN RN jlBoni Barnes RN RN jd3 Gaskin, Ajare ag5 Corrections: (The following items were deleted from the chart) 17:59 17:47 Acuity: NIRMAL 4 jd3 j
[2020-10-20 08:19] VITALS: BP 119/74; TEMP 98.3; O2SAT 99
== END 2020-10-19 18:52 | disposition home or self-care (01) ==
LOC: ER 17:36
DX: L02.01 Cutaneous abscess of face (principal)
CPT/HCPCS: 99283

== ENCOUNTER 2021-10-21 20:52 | Emergency (ER) | payer SELFPAY ==
[2021-10-21] MEDS ORDERED: NA CHLORIDE 0.9% 1,000 ML ONE (21:30)
[2021-10-21] MEDS ORDERED: MORPHINE 4 MG/ML SYR ONE (21:30)
[2021-10-21] MEDS ORDERED: ONDANSETRON 4 MG/2 ML VIAL ONE (21:30)
[2021-10-21 23:54] LABS: Absolute Lymphocytes (CBC) 1.2 K/uL (0.7-4.9); Basophils % 0.3 % (0-1.3); Hematocrit 44.4 % (39.6-49.0); Lymphocytes % 6.2 % (15.3-44.8); MPV 10.2 fL (7.6-11.3); RBC Red Blood Cell Count 4.86 M/uL (4.33-5.43)
[2021-10-22] MEDS ORDERED: TAMSULOSIN 0.4 MG SR CAP ONE (00:02)
[2021-10-22] MEDS ORDERED: NA CHLORIDE 0.9% 1,000 ML ONE (00:03)
[2021-10-22 00:05] LABS: ALT/SGPT 107 U/L (12-78); AST/SGOT 42 U/L (15-37); Albumin 4.4 g/dL (3.4-5.0); Alkaline Phosphatase 104 U/L (45-117); BUN Blood Urea Nitrogen 15 mg/dL (7-18); Bicarbonate 29 mmol/L (21-32); Bilirubin Direct < 0.1 mg/dL (0-0.2); Bilirubin Total 0.4 mg/dL (0.2-1.0); Glucose Level 118 mg/dL (74-106); Lipase 152 U/L (73-393); Potassium 3.4 mmol/L (3.5-5.1); Sodium Level 144 mmol/L (136-145)
[2021-10-22 00:55] LABS: Blood Morphology Comment NOT SEEN (NOT SEEN); Platelet Estimate ADEQ
[2021-10-22 01:45] LABS: Urine Blood Trace-intact (Negative); Urine Glucose Negative (Negative); Urine Protein Negative (Negative); Urine Specific Gravity 1.025 (1.005-1.030)
--- NOTE | 2021-10-22 01:55 | EDPHYS ---
Physician Documentation [facility] Name: Daija Holder Age: 36 yrs Sex: Male : 1985 Arrival Date: 10/21/2021 Time: 20:54 Bed 25 Private MD: ED Physician Thad Beasley HPI: 10/21 21:15 This 36 yrs old Male presents to ER via Ambulatory with complaints of jmm Breathing Difficulty, Abdominal Pain, SIDE ABDOMINAL PAIN, Vomiting, Back Pain. 21:15 The patient has shortness of breath at rest. Onset: The symptoms/episode began/occurred jmm acutely, just prior to arrival. 10/22 01:51 The patient presents with abdominal pain in the lower abdomen. Onset: The jmm symptoms/episode began/occurred acutely, just prior to arrival. The symptoms do not radiate. Associated signs and symptoms: Pertinent positives: nausea and vomiting. The symptoms are described as achy, sharp. Modifying factors: The symptoms are alleviated by nothing, the symptoms are aggravated by nothing. The patient has not experienced similar symptoms in the past. Historical: - Allergies: 10/21 22:00 No Known Allergies; mr2 - Immunization history:: Adult Immunizations up to date. - Social history:: Smoking status: Patient denies any tobacco usage or history of. ROS: 10/22 01:51 Constitutional: Negative for fever, chills, and weight loss, Cardiovascular: Negative jmm for chest pain, palpitations, and edema, Respiratory: Negative for shortness of breath, cough, wheezing, and pleuritic chest pain. Abdomen/GI: Positive for abdominal pain, nausea and vomiting. All other systems are negative. Exam: 01:51 Constitutional: This is a well developed, well nourished patient who is awake, alert, jmm and in no acute distress. Head/Face: atraumatic. Eyes: EOMI, no conjunctival erythema appreciated ENT: Moist Mucus Membranes Neck: Trachea midline, Supple Chest/axilla: Normal chest wall appearance and motion. Cardiovascular: Regular rate and rhythm. No edema appreciated Respiratory: Normal respirations, no respiratory distress appreciated 01:51 Skin: General appearance color normal MS/ Extremity: Moves all extremities, no obvious deformities appreciated, no edema noted to the lower extremities Neuro: Awake and alert, normal gait Psych: Behavior is normal, Mood is normal, Patient is cooperative and pleasant 01:51 Abdomen/GI: Inspection: abdomen appears normal, Bowel sounds: normal, Palpation: soft, mild abdominal tenderness, in the right lower quadrant. 01:51 Back: CVA tenderness, that is moderate, is noted on the right. Vital Signs: 10/21 21:14 BP 103 / 91; Pulse 76; Resp 20; Temp 98.2; Pulse Ox 100% ; Weight 77.11 kg; Height 5 vg1 ft. 6 in. (167.64 cm); Pain 10/; 10/22 00:02 BP 115 / 83; Pulse 70; Resp 18; Temp 98.4; Pulse Ox 99% on R/A; mr2 10/21 21:14 Body Mass Index 27.44 (77.11 kg, 167.64 cm) vg1 MDM: 10/21 21:52 Patient medically screened. [facility] 10/22 01:52 Data reviewed: vital signs, nurses notes. Counseling: I had a detailed discussion with [facility] the patient and/or guardian regarding: the historical points, exam findings, and any diagnostic results supporting the discharge/admit diagnosis, lab results, radiology results, the need for outpatient follow up, to return to the emergency department if symptoms worsen or persist or if there are any questions or concerns that arise at home. ED course: This is a 36-year-old male denies previous medical problems presents emerged part with complaints of right flank pain and acute onset vomiting beginning just prior to arrival. Labs revealed leukocytosis probably secondary to an acute process from the kidney stone. CT revealed 4mm stone. 2 L of fluid given IV. Patient is able to tolerate p.o. now. Pain is relieved in the ED. Will prescribe oral antiemetics and pain medication and advised to follow-up with urology. Patient otherwise given strict return precautions. UA does not appear to show any signs of infection.. 10/21 21:15 Order name: Basic Metabolic Panel; Complete Time: 00:06 [facility] 10/21 21:15 Order name: CBC with Diff; Complete Time: 01:00 [facility] 10/21 21:15 Order name: Hepatic Function; Complete Time: 00:06 [facility] 10/21 21:15 Order name: Lipase; Complete Time: 00:06 [facility] 10/21 23:59 Order name: Manual Differential; Complete Time: 01:00 [facility] 10/22 01:45 Order name: Urine Dipstick-Ancillary [facility] 10/21 21:15 Order name: IV Saline Lock; Complete Time: : [facility] 10/21 21:15 Order name: Labs collected and sent; Complete Time: [facility] 10/21 21:15 Order name: CT Stone Protocol [facility] Administered Medications: 10/21 21:44 Drug: NS 0.9% 1000 ml Route: IV; Rate: 1 bolus; Site: right antecubital; mr2 21:46 Drug: morphine 4 mg Route: IVP; Site: right antecubital; mr2 21:46 Drug: Zofran (Ondansetron) 4 mg Route: IVP; Site: right antecubital; mr2 10/22 00:01 Drug: Flomax (tamsulosin) 0.4 mg Route: PO; mr2 00:10 Drug: NS 0.9% 1000 ml Route: IV; Rate: 1 bolus; Site: right antecubital; mr2 Disposition: 06:07 Co-signature as Attending Physician, Thad Beasley MD. mh7 Disposition Summary: 10/22/21 01:54 Discharge Ordered Location: Home [facility] Condition: Stable [facility] Diagnosis - Calculus of ureter [facility] Followup: [facility] - With: Rudolph Montes MD - When: 2 - 3 days - Reason: Recheck today's complaints, Continuance of care, Re-evaluation by your physician Discharge Instructions: - Discharge Summary Sheet [facility] - Kidney Stones [facility] - Dietary Guidelines to Help Prevent Kidney Stones [facility] - Form - Excuse from Work, School, or Physical Activity lp1 Forms: - Medication Reconciliation Form [facility] - Thank You Letter [facility] - Antibiotic Education [facility] - Prescription Opioid Use [facility] Prescriptions: - ondansetron 4 mg Oral tablet,disintegrating - take 1 tablet by ORAL route every 8 hours As needed; 20 tablet; Refills: 0, [facility] Product Selection Permitted - Ultracet 37.5-325 mg Oral Tablet - take 1 tablet by ORAL route every 6 hours - for up to 5 days; do not exceed 8 jmm tablets per day.; 12 tablet; Refills: 0, Product Selection Permitted Signatures: Dispatcher [employer] [facility] William Steiner PA PA Thad Spicer MD MD mh7 Mynor Pitts, FARZANA RN mr2
--- NOTE | 2021-10-22 01:55 | ER ---
Nurse's Notes [facility] Name: Daija Holder Age: 36 yrs Sex: Male : 1985 Arrival Date: 10/21/2021 Time: 20:54 Bed 25 Private MD: Diagnosis: Calculus of ureter Presentation: 10/21 21:14 Chief complaint: Patient states: Sudden onset of Right side flank pain that radiates vg1 into groin and right testicle. States NV, states unable to urinate. Last time of urination was about 3 hours ago. Coronavirus screen: Vaccine status: Patient reports receiving the 2nd dose of the covid vaccine. Client denies travel out of the [place] in the last 14 days. Ebola Screen: Patient negative for fever greater than or equal to 101.5 degrees Fahrenheit, and additional compatible Ebola Virus Disease symptoms. Initial Sepsis Screen: Does the patient meet any 2 criteria? No. Patient's initial sepsis screen is negative. Does the patient have a suspected source of infection? No. Patient's initial sepsis screen is negative. Risk Assessment: Do you want to hurt yourself or someone else? Patient reports no desire to harm self or others. Onset of symptoms was October 21, 2021. 21:14 Method Of Arrival: Ambulatory vg1 21:14 Acuity: NIRMAL 3 vg1 Triage Assessment: 22:00 General: Appears uncomfortable, Behavior is calm, cooperative. Pain: Complains of pain mr2 in right lower quadrant Pain radiates to right mid back. Respiratory: Onset: The symptoms/episode began/occurred suddenly, the patient has mild shortness of breath. Respiratory: Reports pain with movement. Historical: - Allergies: 22:00 No Known Allergies; mr2 - Immunization history:: Adult Immunizations up to date. - Social history:: Smoking status: Patient denies any tobacco usage or history of. Screenin:00 Abuse screen: Denies threats or abuse. Denies injuries from another. Nutritional mr2 screening: No deficits noted. Tuberculosis screening: No symptoms or risk factors identified. Fall Risk IV access (20 points). Gait- Weak (10 pts.). Assessment: 22:00 Cardiovascular: Rhythm is sinus rhythm. Respiratory: Airway is patent Respiratory mr2 effort is even, unlabored, Breath sounds are clear. Vital Signs: 21:14 BP 103 / 91; Pulse 76; Resp 20; Temp 98.2; Pulse Ox 100% ; Weight 77.11 kg; Height 5 vg1 ft. 6 in. (167.64 cm); Pain 10/10; 10/22 00:02 BP 115 / 83; Pulse 70; Resp 18; Temp 98.4; Pulse Ox 99% on R/A; mr2 10/21 21:14 Body Mass Index 27.44 (77.11 kg, 167.64 cm) vg1 ED Course: 10/21 20:54 Patient arrived in ED. cf2 21:14 William Steiner PA is PHCP. jmm 21:14 Thad Beasley MD is Attending Physician. m 21:21 Triage completed. vg1 21:30 Mynor Pitts, FARZANA is Primary Nurse. mr2 21:35 Inserted saline lock: 22 gauge antecubital area, using aseptic technique. Blood vg1 collected. 22:00 No provider procedures requiring assistance completed. mr2 22:00 Arm band placed on. mr2 22:00 Bed in low position. Call light in reach. Side rails up X2. mr2 22:20 CT Stone Protocol In Process Unspecified. EDMS 10/22 01:54 Rudolph Montes MD is Referral Physician. [facility] 03:00 IV discontinued, intact. mr2 Administered Medications: 10/21 21:44 Drug: NS 0.9% 1000 ml Route: IV; Rate: 1 bolus; Site: right antecubital; mr2 21:46 Drug: morphine 4 mg Route: IVP; Site: right antecubital; mr2 21:46 Drug: Zofran (Ondansetron) 4 mg Route: IVP; Site: right antecubital; mr2 10/22 00:01 Drug: Flomax (tamsulosin) 0.4 mg Route: PO; mr2 00:10 Drug: NS 0.9% 1000 ml Route: IV; Rate: 1 bolus; Site: right antecubital; mr2 Outcome: 01:54 Discharge ordered by . [facility] 03:00 Discharged to home ambulatory, with family. mr2 03:00 Condition: stable 03:00 Discharge instructions given to patient, Instructed on discharge instructions, follow up and referral plans. medication usage, Prescriptions given X 2. 03:19 Patient left the ED. mr2 Signatures: Dispatcher [employer] EDMS William Steiner PA PA jmm Pena, Laura RN RN lp1 Marin Mcdaniel cf2 Beata Ruiz RN RN vg1 Mynor Pitts RN RN mr2 Corrections: (The following items were deleted from the chart) 10/21 21:28 21:28 Inserted saline lock: 22 gauge in right antecubital area, using aseptic lp1 technique. Blood collected. 1 : 21:28 Initial lab(s) drawn, by me, sent to [place]. [place] [id number] 10/22 03:14 03:11 Pain: Complains of pain in right lower quadrant Pain radiates to right mid back mr2 mr2 03:14 03:11 Respiratory: Reports pain with movement mr2 mr2 03:14 03:11 General: Appears uncomfortable, Behavior is calm, cooperative, mr2 mr2 03:14 03:11 Respiratory: Onset: The symptoms/episode began/occurred suddenly, the patient has mr2 mild shortness of breath mr2
[2021-10-22 03:27] VITALS: BP 115/83; TEMP 98.4; O2SAT 99
--- NOTE | 2021-10-22 12:45 | RAD REPORT ---
EXAM DESCRIPTION: Stone Protocol CLINICAL HISTORY: 36 years Male ABD PAIN COMPARISON: None TECHNIQUE: Images were obtained in axial, sagittal, and coronal planes. No intravenous contrast was administered. This exam was performed according to our departmental dose-optimization program which includes use of Automated Exposure Control, adjustment of the mA and/or kV according to patient size and/or use o f iterative reconstruction technique. FINDINGS: 1.9 cm mildly flocculent calcification superior right lobe of liver. The finding could be consistent with hemangioma in this region. Unremarkable spleen, pancreas, gallbladder, or adrenal gla nds bilaterally. 4 mm calculus right ureterovesicular junction with associated mild right hydronephrosis and hydrouret er. Multiple punctate nonobstructing calcifications kidneys bilaterally. No hydronephrosis or hydrour eter on left. Mild right perinephric stranding. Otherwise unremarkable bladder. Appendix within normal limits. No bowel obstruction, perforation, or inflammation. Mild constipation. No dilatation of abdominal aorta. No adenopathy or abnormal fluid collections seen. No abnormality lower lungs bilaterally. No acute osseous abnormality. IMPRESSION: 1. 4 mm calculus right ureterovesicular junction with associated mild right hydronephr osis and hydroureter. Multiple punctate nonobstructing calcifications kidneys bilaterally. 2. 1.9 cm mildly flocculent calcification superior right lobe of liver. The finding could be consis tent with hemangioma in this region. Prior inflammation also a consideration. Electronically signed by: Bhavna Katz MD 10/21/2021 10:57 PM [employer] Due to temporary technical issues with the PACS/Fluency reporting system, reports are being signed by the in house radiologist without review as a courtesy to ensure prompt reporting. The interpreting r adiologist is fully responsible for the content of the report.
== END 2021-10-22 03:19 | disposition home or self-care (01) ==
LOC: ER 20:52
DX: N20.1 Calculus of ureter (principal)
CPT/HCPCS: 36415; 74176; 76377; 80048; 80076; 81003; 83690; 85025; 96374; 96375; 99284; J2405; J7030